=== PATIENT | female | born 1965 | race Caucasian/White ===

== ENCOUNTER 2017-06-07 08:04 | Day surgery (SDC) | payer OTHER ==
[2017-06-07] MEDS ORDERED: Lactated Ringers 1,000 ML IV SCH (08:15)
[2017-06-07] MEDS ORDERED: Propofol 200 MG/20 ML SDV IV ONE (09:30)
--- NOTE | 2017-06-07 09:54 | PCM.OPNOTE ---
- General Post-Op/Procedure Note Date of Surgery/Procedure: 06/07/17 Operative Procedure(s): c scope Findings: sigmoid diverticulosis Pre Op Diagnosis: screening Post-Op Diagnosis: sigmoid diverticulosis Anesthesia Technique: MAC Primary Surgeon: Catrachito Mcdaniel Anesthesia Provider: Vinod Hunt Complications: None Condition: Good Free Text/Narrative:: see dictation
--- NOTE | 2017-06-07 10:27 | OR ---
DATE OF OPERATION: 06/07/2017 SURGEON: Catrachito Mcdaniel MD PROCEDURE PERFORMED: Colonoscopy. PREOPERATIVE DIAGNOSIS: Need for colon cancer screening. POSTOPERATIVE DIAGNOSIS: Sigmoid diverticulosis. INDICATIONS FOR PROCEDURE: This is a 51-year-old white female, who presents for her initial screening colonoscopy. She was offered and accepted the same. DESCRIPTION OF OPERATION: After an excellent IV sedation was administered, digital rectal exam was performed. No marked abnormality was noted. The flexible colonoscope was inserted and advanced to the cecum without difficulty. The following findings were noted. Ascending colon, unremarkable. Transverse colon, unremarkable. Descending colon, unremarkable. Sigmoid, mild scattered diverticulosis. Rectum and anus, unremarkable. Colon was deflated. The scope was removed. The patient tolerated the procedure well, and was taken to recovery in good condition. /[id number] /MODL
[2017-06-07 10:51] VITALS: BP 113/69
== END 2017-06-07 11:09 | disposition home or self-care (01) ==
LOC: MERGE 08:04 → FB.SDS 08:04
PROVIDERS: ATTEND Surgery
DX: Z12.11 Encounter for screening for malignant neoplasm of colon (principal); K57.30 Diverticulosis of large intestine without perforation or abscess without bleeding; Z88.1 Allergy status to other antibiotic agents; Z88.2 Allergy status to sulfonamides; Z79.899 Other long term (current) drug therapy; Z90.710 Acquired absence of both cervix and uterus; Z98.890 Other specified postprocedural states
CPT/HCPCS: 45378; J7120; J2704